=== PATIENT | female | born 1965 | race Caucasian/White ===

== ENCOUNTER 2020-11-05 14:43 | Outpatient (CLI) | payer OTHER, SELFPAY ==
--- NOTE | 2020-11-05 14:50 | MM_ITS ---
WS: [id number] BILATERAL DIGITAL SCREENING MAMMOGRAPHY WITH CAD CLINICAL INFORMATION: SCREENING HISTORY: Screening mammogram. No current complaints. COMPARISON: 2017 TECHNIQUE: Bilateral CC and MLO views. FINDINGS: The breasts are composed of heterogeneous fibroglandular density tissue, which can limit the detectio n of small underlying mass lesions. 10 mm slightly spiculated focal asymmetric density along the post erior nipple line LEFT breast. This appears new from previous. Recommend further evaluation with spot compression views and ultrasound. Right breast is unremarkable and unchanged. MM/[place] [id number] IMPRESSION: BI-RADS: 0-Incomplete: Need additional imaging evaluation FOLLOW UP: Need Additional Imaging RECOMMEND LEFT BREAST DIAGNOSTIC MAMMOGRAPHY AND ULTRASOUND.
== END 2020-11-05 14:44 | disposition home or self-care (01) ==
PROVIDERS: PCP Family Medicine; Visit Provider Family Medicine
DX: Z12.31 Encounter for screening mammogram for malignant neoplasm of breast (principal); N64.89 Other specified disorders of breast
CPT/HCPCS: 77067

== ENCOUNTER 2023-05-08 14:16 | Outpatient (CLI) | payer OTHER, SELFPAY ==
--- NOTE | 2023-05-08 14:28 | XR_ITS ---
WS: [id number] Exam: XR chest 2V* [id number] Date/Time of Exam: 05/08/2023 3:07 PM Reason For Exam: ACUTE COUGH Comparison 01/12/2010. The lungs are clear and fully expanded. Normal cardiomediastinal silhouette. Regional bony elements a re intact. No pleural effusions. Increased thoracic kyphosis and mild degenerative changes of the T[place]. IMPRESSION: 1. No acute cardiopulmonary finding.
== END 2023-05-08 14:17 | disposition home or self-care (01) ==
PROVIDERS: PCP Family Medicine; Visit Provider Family Medicine
DX: R05.1 Acute cough (principal)
CPT/HCPCS: 71046

== ENCOUNTER → 2024-11-11 16:39 | Outpatient (BNVA) | payer OTHER, SELFPAY | PROVIDERS: PCP Family Medicine; Visit Provider Registered Nurse Neonatal Intensive Care | DX: N39.0 Urinary tract infection, site not specified (principal) | CPT/HCPCS: 81000; 87086 ==